=== PATIENT | female | born 1960 | race Hispanic/Latino ===

== ENCOUNTER → 2021-10-06 | Outpatient (CLI) | payer BC ==
[~2021-10-06] MED LIST: ACET1TAB12 PO; ASPI-556 PO; CEPH500C2 PO; CITA40TA14 PO; FOLI0.8T3 PO; IBUP-2070 PO; METF-526 PO; VALS1TAB4 PO
== END | disposition home or self-care (01) ==
LOC: OIH 13:17
PROVIDERS: ATTEND Family Medicine
DX: M47.812 Spondylosis without myelopathy or radiculopathy, cervical region (principal)
CPT/HCPCS: 72050

== ENCOUNTER 2021-10-12 23:28 | Inpatient (IN) | payer BC ==
[~2021-10-12] VITALS: Ht 167.6 cm; Wt 129.7 kg
[~2021-10-12 23:28] MED LIST changes: +CEPH500B PO; +CLIN-141 PO
[2021-10-13 00:38] LABS: CREATININE 0.9 mg/dL (0.5-1.5); POTASSIUM 3.6 mmol/L (3.5-5.1)
[2021-10-13 00:39] LABS: BASOPHILS % (AUTO) 0.4 % (0.0-5.0); HEMATOCRIT 40.4 % (36-48); LYMPHOCYTES % (AUTO) 29.9 % (21.0-51.0); MEAN CORPUSCULAR HEMOGLOBIN 31.5 pg (27.0-33.0); MEAN CORPUSCULAR HGB CONC 33.9 g/dL (32.0-36.0); MEAN CORPUSCULAR VOLUME 92.9 fL (79-99); MONOCYTES % (AUTO) 11.5 % (3.0-13.0); NEUTROPHILS % (AUTO) 54.4 % (40.0-77.0); PLATELET COUNT (AUTO) 379 K/uL (130-400); RED BLOOD CELL COUNT(AUTO) 4.35 MIL/uL (4.00-5.50); RED CELL DISTRIBUTION WIDTH 12.2 % (11.0-15.5); WHITE BLOOD COUNT (AUTO) 11.2 K/uL (4.8-10.8)
[2021-10-13 00:42] LABS: ALBUMIN 3.7 g/dL (3.5-5.0); BILIRUBIN,TOTAL 0.5 mg/dL (0.2-1.0); TOTAL PROTEIN, SERUM 7.4 g/dL (6.0-8.3)
[2021-10-13] MEDS ORDERED: IOHEXOL-350 50ML VIAL IV ONE (00:47)
[2021-10-13] MEDS ORDERED: ZOSYN 3.375GM+NS 50ML 50 ML ONE (00:50)
[2021-10-13] MEDS ORDERED: KETOROLAC 15MG/ML VIAL (15MG/ML) ONE (00:51)
[2021-10-13] MEDS ORDERED: KETOROLAC 15MG/ML VIAL (15MG/ML) IV ONE (01:00)
[2021-10-13] MEDS ORDERED: ZOSYN 3.375GM +NS 50ML IV SCH (01:00)
[2021-10-13] MEDS ORDERED: ZOSYN 3.375GM +NS 50ML IV ONE (01:00)
[2021-10-13] MEDS ORDERED: MAG/ALUM/SIMETH 30 ML UDCUP PO PRN (04:00)
[2021-10-13] MEDS ORDERED: NITROGLYCERIN 0.4 MG SL TAB SL PRN (04:00)
[2021-10-13] MEDS ORDERED: ONDANSETRON 4MG INJ IV PRN (04:00)
[2021-10-13] MEDS ORDERED: GUAIFENESIN-DM 200/20 MG 10 ML PO PRN (04:00)
[2021-10-13] MEDS ORDERED: IPRATROPIUM/ALBUTEROL SULFATE 3 ML SOLUTION IH PRN (04:00)
[2021-10-13] MEDS ORDERED: ZOLPIDEM TARTRATE 5 MG TAB PO PRN (04:00)
[2021-10-13] MEDS ORDERED: ACETAMINOPHEN 325 MG TAB PO PRN (04:00)
[2021-10-13] MEDS ORDERED: LACTULOSE 20 GM/30 ML UDCUP PO PRN (04:00)
[2021-10-13] MEDS ORDERED: DOXYCYCLINE 100MG IVPB (VIAL) IVPB SCH (04:30)
[2021-10-13] MEDS ORDERED: DOXYCYCLINE 100MG+NS 250ML 250 ML IV SCH (04:30)
[2021-10-13] MEDS: DiphenhydrAMINE HCL 50 MG/ML VIAL IV PRN ×3 (05:11→20:35)
[2021-10-13] MEDS: 0.9% NACL 250ML IVPB SCH (05:12)
[2021-10-13] MEDS ORDERED: VANCOMYCIN PROTOCOL PER PHARMACY IV SCH (08:30)
[2021-10-13] MEDS ORDERED: COMPOUND IV REFRIGERATED 1 EACH IVSOLN MISC PRN (08:30)
[2021-10-13] MEDS ORDERED: 0.9% NACL 250ML IV SCH (08:30)
[2021-10-13] MEDS ORDERED: VANCOMYCIN 1G VIAL IVPB SCH (08:30)
[2021-10-13] MEDS ORDERED: SULFAMETHOX-TMP DS 800/160 TAB PO SCH (09:00)
[2021-10-13] MEDS: ENOXAPARIN SODIUM 30 MG/0.3 ML SQ SCH (09:00)
[2021-10-13] MEDS: FAMOTIDINE 20MG VIAL IV SCH (09:00)
[2021-10-13] MEDS: VANCOMYCIN 1.25GM/NS 250ML IVPB SCH ×4 (09:30→20:38)
[2021-10-13] MEDS: 0.9%NACL 1000ML 1,000 ML IV SCH ×2 (10:01→18:49)
[2021-10-13] MEDS ORDERED: HYDRALAZINE 20MG/ML VIAL IV PRN (13:00)
[2021-10-13] MEDS ORDERED: DEXTROSE 50%-WATER 50 ML DISP.SYRIN IV PRN (15:00)
[2021-10-13] MEDS ORDERED: DEXAMETHASONE SOD PHOSPHATE 4 MG/ML 1ML VIAL IV SCH (15:00)
[2021-10-13] MEDS ORDERED: GLUCAGON 1MG KIT 1 MG ML IM PRN (15:00)
[2021-10-13] MEDS: INSULIN HUMULIN R 100 UNIT/ML 3ML SQ SCH ×2 (15:57→21:17)
[2021-10-13 18:01] VITALS: BP 110/86
[2021-10-13] MEDS ORDERED: LOSA1TAB37 PO (18:41)
[2021-10-13] MEDS ORDERED: VITAD50000 PO (18:41)
[2021-10-13 19:30] VITALS: BP 107/60
[2021-10-13] MEDS: LOSARTAN/HYDROCHLOROTHIAZIDE 50-12.5MG TABLET PO SCH (21:00)
[2021-10-13 23:15] VITALS: BP 115/57
[2021-10-14] MEDS: ZOSYN 3.375GM +NS 50ML IV SCH ×3 (01:46→17:04)
[2021-10-14 03:00] VITALS: BP 107/45
[2021-10-14] MEDS: 0.9%NACL 1000ML 1,000 ML IV SCH ×3 (05:27→21:48)
[2021-10-14 05:52] LABS: BASOPHILS % (AUTO) 0.1 % (0.0-5.0); EOSINOPHILS % (AUTO) 0.3 % (0.0-8.0); LYMPHOCYTES % (AUTO) 10.9 % (21.0-51.0); MEAN CORPUSCULAR HEMOGLOBIN 30.7 pg (27.0-33.0); MEAN CORPUSCULAR HGB CONC 33.4 g/dL (32.0-36.0); MEAN CORPUSCULAR VOLUME 91.9 fL (79-99); MONOCYTES % (AUTO) 4.4 % (3.0-13.0); NEUTROPHILS % (AUTO) 83.3 % (40.0-77.0); PLATELET COUNT (AUTO) 356 K/uL (130-400); RED BLOOD CELL COUNT(AUTO) 3.81 MIL/uL (4.00-5.50); WHITE BLOOD COUNT (AUTO) 11.5 K/uL (4.8-10.8)
[2021-10-14 06:05] LABS: HEMOGLOBIN A1C 6.6 % (4.0-6.0)
[2021-10-14 06:06] LABS: ALBUMIN 3.2 g/dL (3.5-5.0); BILIRUBIN,TOTAL 0.5 mg/dL (0.2-1.0); CREATININE 0.7 mg/dL (0.5-1.5); POTASSIUM 3.8 mmol/L (3.5-5.1); TOTAL PROTEIN, SERUM 6.7 g/dL (6.0-8.3)
[2021-10-14] MEDS: INSULIN HUMULIN R 100 UNIT/ML 3ML SQ SCH ×4 (06:58→21:46)
[2021-10-14 07:26] VITALS: BP 99/58
[2021-10-14] MEDS: LOSARTAN/HYDROCHLOROTHIAZIDE 50-12.5MG TABLET PO SCH (08:52)
[2021-10-14] MEDS: FAMOTIDINE 20MG VIAL IV SCH (08:52)
[2021-10-14] MEDS: VANCOMYCIN 1.25GM/NS 250ML IVPB SCH ×4 (08:52→20:57)
[2021-10-14] MEDS: ENOXAPARIN SODIUM 30 MG/0.3 ML SQ SCH (08:53)
[2021-10-14] MEDS: DiphenhydrAMINE HCL 50 MG/ML VIAL IV PRN (09:05)
[2021-10-14] MEDS ORDERED: SOLU-MEDROL 125MG VIAL IVP SCH (09:30)
[2021-10-14 11:27] VITALS: BP 98/60
[2021-10-14 16:29] VITALS: BP 116/51
[2021-10-14 19:35] VITALS: BP 99/54
[2021-10-14 23:12] VITALS: BP 109/63
[2021-10-15] MEDS: ZOSYN 3.375GM +NS 50ML IV SCH ×3 (00:30→16:58)
[2021-10-15 03:25] VITALS: BP 98/51
[2021-10-15] MEDS: 0.9% NACL 250ML IVPB SCH (04:30)
[2021-10-15 04:56] LABS: HEMATOCRIT 34.2 % (36-48); MEAN CORPUSCULAR HEMOGLOBIN 31.5 pg (27.0-33.0); MEAN CORPUSCULAR VOLUME 95.3 fL (79-99); RED BLOOD CELL COUNT(AUTO) 3.59 MIL/uL (4.00-5.50); RED CELL DISTRIBUTION WIDTH 12.4 % (11.0-15.5); WHITE BLOOD COUNT (AUTO) 15.2 K/uL (4.8-10.8)
[2021-10-15] MEDS: VANCOMYCIN KIT 1 GM/250 ML IV.KIT IV SCH ×3 (05:02→21:18)
[2021-10-15 05:07] LABS: CREATININE 0.8 mg/dL (0.5-1.5); POTASSIUM 3.6 mmol/L (3.5-5.1)
[2021-10-15 07:10] VITALS: BP 89/44
[2021-10-15] MEDS: INSULIN HUMULIN R 100 UNIT/ML 3ML SQ SCH ×3 (07:30→21:00)
[2021-10-15] MEDS: LOSARTAN/HYDROCHLOROTHIAZIDE 50-12.5MG TABLET PO SCH (09:00)
[2021-10-15] MEDS: ENOXAPARIN SODIUM 30 MG/0.3 ML SQ SCH (09:12)
[2021-10-15] MEDS: FAMOTIDINE 20MG VIAL IV SCH (09:12)
[2021-10-15] MEDS: 0.9%NACL 1000ML 1,000 ML IV SCH ×2 (09:17→20:30)
[2021-10-15 11:15] VITALS: BP 138/67
[2021-10-15] MEDS: ACETAMINOPHEN 325 MG TAB PO PRN (13:37)
[2021-10-15 15:30] VITALS: BP 116/67
[2021-10-15 19:32] VITALS: BP 107/63
[2021-10-15 23:13] VITALS: BP 117/63
[2021-10-16] MEDS: ZOSYN 3.375GM +NS 50ML IV SCH ×2 (00:36→08:26)
[2021-10-16] MEDS: 0.9%NACL 1000ML 1,000 ML IV SCH (01:00)
[2021-10-16 04:10] VITALS: BP 110/60
[2021-10-16] MEDS: ACETAMINOPHEN 325 MG TAB PO PRN (04:21)
[2021-10-16] MEDS: 0.9% NACL 250ML IVPB SCH (04:30)
[2021-10-16] MEDS: VANCOMYCIN KIT 1 GM/250 ML IV.KIT IV SCH (05:01)
[2021-10-16 05:52] LABS: MEAN CORPUSCULAR HEMOGLOBIN 31.1 pg (27.0-33.0); MEAN CORPUSCULAR HGB CONC 33.1 g/dL (32.0-36.0); MEAN CORPUSCULAR VOLUME 93.8 fL (79-99); RED BLOOD CELL COUNT(AUTO) 3.73 MIL/uL (4.00-5.50); RED CELL DISTRIBUTION WIDTH 12.6 % (11.0-15.5); WHITE BLOOD COUNT (AUTO) 13.8 K/uL (4.8-10.8)
[2021-10-16 06:04] LABS: CREATININE 0.9 mg/dL (0.5-1.5); POTASSIUM 3.3 mmol/L (3.5-5.1)
[2021-10-16 07:17] VITALS: BP 99/46
[2021-10-16] MEDS: INSULIN HUMULIN R 100 UNIT/ML 3ML SQ SCH (07:21)
[2021-10-16 07:30] VITALS: BP 125/64
[2021-10-16] MEDS ORDERED: DOXY100T21 PO (08:08)
[2021-10-16] MEDS ORDERED: AMOX-429 PO (08:08)
[2021-10-16] MEDS: LOSARTAN/HYDROCHLOROTHIAZIDE 50-12.5MG TABLET PO SCH (08:34)
[2021-10-16] MEDS: ENOXAPARIN SODIUM 30 MG/0.3 ML SQ SCH (08:34)
[2021-10-16] MEDS: FAMOTIDINE 20MG VIAL IV SCH (08:34)
[2021-10-16 11:40] VITALS: BP 144/70
== END 2021-10-16 12:51 | disposition home or self-care (01) | DRG 603 ==
LOC: EDH 23:28 → EDHIP 10-13 01:49 → OBSVTOIN 10-13 01:49 → WSH 10-13 17:50
PROVIDERS: ADMIT Internal Medicine; ATTEND Internal Medicine
DX: L03.221 Cellulitis of neck (principal); Z68.42 Body mass index [BMI] 45.0-49.9, adult; E11.65 Type 2 diabetes mellitus with hyperglycemia; E66.01 Morbid (severe) obesity due to excess calories; I10 Essential (primary) hypertension; L30.9 Dermatitis, unspecified; F41.9 Anxiety disorder, unspecified; Z20.822 Contact with and (suspected) exposure to COVID-19; Z83.3 Family history of diabetes mellitus; Z82.49 Family history of ischemic heart disease and other diseases of the circulatory system
CPT/HCPCS: 36415; 70491; 71045; 80048; 80053; 80202; 82948; 83036; 83605; 84145; 85025; 85027; 87040; 87635; 92610; 96361; 96365; 96375; C9803; G0378; J0696; J1100; J1200; J1650; J1815; J1885; J2543; J2930; J3370; J3490; J7030; J7050; Q9967

== ENCOUNTER → 2024-11-29 | Outpatient (CLI) | payer BC ==
[~2024-11-29] MED LIST changes: -ACET1TAB12 PO; +AMOX-429 PO; -CEPH500B PO; -CEPH500C2 PO; -CLIN-141 PO; +DOXY100T21 PO; -FOLI0.8T3 PO; -METF-526 PO; -VALS1TAB4 PO; +VITAD50000 PO
--- NOTE | 2024-11-29 11:39 | HMCIMG ---
US PELVIC NON-OB COMP REASON: hematuria, unspecified COMPARISON: 08/07/2022 TECHNIQUE: Routine pelvic sonogram was performed. FINDINGS: Uterus is 5 x 2.7 x 5.4 cm. Endometrium is 3 mm. There are no focal myometrial or endometrial masses. Ovaries were not separately identified. There are no adnexal masses or cysts. There is no free fluid in the cul-de-sac. IMPRESSION: 1. Normal pelvic sonogram although the ovaries are not separately identified.
--- NOTE | 2024-11-29 11:39 | HMCIMG ---
US ABDOMINAL COMPLETE REASON: hematuria, unspecified COMPARISON: 10/07/2022 FINDINGS: There is normal sonographic appearance of the liver. There are no focal mass lesions. The liver is not enlarged.There is a normal-appearing gallbladder. Kidneys appear normal in size and appearance. There is no evidence of mass, stone or hydronephrosis. Spleen and common duct appear normal. Aorta and inferior vena cava appear normal. The pancreas is obscured by overlying bowel gas. IMPRESSION: 1. Normal abdomen ultrasound although the pancreas was not visualized.
== END | disposition home or self-care (01) ==
LOC: RAH 07:45
PROVIDERS: ATTEND Family Medicine
DX: R31.9 Hematuria, unspecified (principal); M54.9 Dorsalgia, unspecified
CPT/HCPCS: 76700; 76856